=== PATIENT | male | born 1940 | race Caucasian/White ===

== ENCOUNTER 2019-03-15 09:53 | Day surgery (SDC) | payer OTHER, BC ==
[2019-03-11 13:42] VITALS: BMI 30.7
[2019-03-15 11:59] VITALS: TEMP 97.9
[2019-03-15 12:20] VITALS: BP 121/81; PULSE 76
--- NOTE | 2019-03-18 12:13 | PATH ---
Surgical Pathology Report Patient Name: GAMA MCKENNA [facility]. Rec. #: [id number] /Age/Gender: 1940 (Age: 78) / M Account: [id number] Location: [facility] Taken: 03/15/2019 Received: 03/15/2019 Reported: 03/18/2019 Physicians: Fer Pop M.D. Specimen(s) Received A: SECOND PORTION OF DUODENUM B: GASTRIC ANTRUM C: DISTAL ESOPHAGUS Clinical History Anemia (iron deficient) Postoperative diagnosis: Duodenitis, distal esophagitis, diverticulosis, poor prep Final Diagnosis A. SECOND PORTION OF DUODENUM, BIOPSY: DUODENAL MUCOSA WITH NO PATHOLOGIC FINDINGS. B. GASTRIC ANTRUM, BIOPSY: SEVERE CHRONIC ACTIVE GASTRITIS. IMMUNOSTAIN SHOWS NUMEROUS H. PYLORI ORGANISMS. C. DISTAL ESOPHAGUS, BIOPSY: ESOPHAGEAL (SQUAMOUS) MUCOSA WITH A DETACHED FRAGMENT SHOWING MARKED ACUTE ESOPHAGITIS. NO COLUMNAR EPITHELIUM/INTESTINAL METAPLASIA IS IDENTIFIED. PAS STAIN IS NEGATIVE FOR FUNGAL ORGANISMS. Electronically Signed Renetta Monique M.D. Gross Description A. Received in formalin, labeled "biopsy second portion of duodenum" are 2 marshall, irregular portions of soft tissue measuring 0.2 and 0.3 cm. in greatest dimension. The specimens are submitted in toto in one cassette. B. Received in formalin, labeled "biopsy gastric antrum" are 2 marshall, irregular portions of soft tissue measuring 0.4 and 0.6 cm. in greatest dimension. The specimens are submitted in toto in one cassette. C. Received in formalin, labeled "biopsy distal esophagus" is a marshall, irregular portion of soft tissue measuring 0.4 cm. in greatest dimension. The specimen is submitted in toto in one cassette. 03/16/2019 [facility]03/16/2019
== END 2019-03-15 12:25 | disposition home or self-care (01) ==
LOC: FASU-ENDO 09:53
PROVIDERS: ATTEND Internal Medicine Gastroenterology
PROC: 0DB68ZX Excision of Stomach, Via Natural or Artificial Opening Endoscopic, Diagnostic (ICD-10-PCS; 2019-03-15)
PROC: 0DB48ZX Excision of Esophagogastric Junction, Via Natural or Artificial Opening Endoscopic, Diagnostic (ICD-10-PCS; 2019-03-15)
PROC: 0DJD8ZZ Inspection of Lower Intestinal Tract, Via Natural or Artificial Opening Endoscopic (ICD-10-PCS; 2019-03-15)
PROC: 0DB98ZX Excision of Duodenum, Via Natural or Artificial Opening Endoscopic, Diagnostic (ICD-10-PCS; principal; 2019-03-15 11:26)
DX: D50.9 Iron deficiency anemia, unspecified (principal); K29.50 Unspecified chronic gastritis without bleeding; B96.81 Helicobacter pylori [H. pylori] as the cause of diseases classified elsewhere; K20.8 Other esophagitis
CPT/HCPCS: 82962

== ENCOUNTER 2019-03-29 09:49 | Day surgery (SDC) | payer OTHER, BC ==
[2019-03-24 13:59] VITALS: BMI 30.7
[2019-03-29 10:29] VITALS: TEMP 98.2
[2019-03-29] MEDS ORDERED: PROPOFOL 20 ML ONE ×3 (11:26)
[2019-03-29 12:26] VITALS: BP 115/75; PULSE 65
== END 2019-03-29 12:30 | disposition home or self-care (01) ==
LOC: FASU-ENDO 09:49
PROVIDERS: ATTEND Internal Medicine Gastroenterology
PROC: 0D5H8ZZ Destruction of Cecum, Via Natural or Artificial Opening Endoscopic (ICD-10-PCS; 2019-03-29)
PROC: 0D5K8ZZ Destruction of Ascending Colon, Via Natural or Artificial Opening Endoscopic (ICD-10-PCS; principal; 2019-03-29 11:26)
DX: K57.30 Diverticulosis of large intestine without perforation or abscess without bleeding (principal); K55.20 Angiodysplasia of colon without hemorrhage; Z12.11 Encounter for screening for malignant neoplasm of colon
CPT/HCPCS: 82962

== ENCOUNTER 2022-03-25 08:58 | Day surgery (SDC) | payer OTHER, BC ==
[2022-03-20 13:03] VITALS: BMI 29.0
[2022-03-25 13:07] VITALS: RESP 17; TEMP 98
[2022-03-25 13:09] VITALS: PULSE 55
[2022-03-25 13:11] VITALS: BP 132/61
== END 2022-03-25 11:36 | disposition home or self-care (01) ==
LOC: FASU-ENDO 08:58
PROVIDERS: ATTEND Internal Medicine Gastroenterology
PROC: 0D578ZZ Destruction of Stomach, Pylorus, Via Natural or Artificial Opening Endoscopic (ICD-10-PCS; 2022-03-25)
PROC: 0DJD8ZZ Inspection of Lower Intestinal Tract, Via Natural or Artificial Opening Endoscopic (ICD-10-PCS; 2022-03-25)
PROC: 0DB78ZX Excision of Stomach, Pylorus, Via Natural or Artificial Opening Endoscopic, Diagnostic (ICD-10-PCS; principal; 2022-03-25 09:58)
DX: K29.50 Unspecified chronic gastritis without bleeding (principal); B96.81 Helicobacter pylori [H. pylori] as the cause of diseases classified elsewhere; K29.80 Duodenitis without bleeding; K55.20 Angiodysplasia of colon without hemorrhage; D50.9 Iron deficiency anemia, unspecified
CPT/HCPCS: 82962; 88305-TC; 88342-TC

== ENCOUNTER 2022-05-30 08:09 | Day surgery (SDC) | payer OTHER, BC ==
[2022-05-28 13:22] VITALS: BMI 28.8
[2022-05-30] MEDS ORDERED: PROPOFOL 20 ML ONE (09:40)
[2022-05-30 11:17] VITALS: TEMP 98
[2022-05-30 11:19] VITALS: RESP 18
[2022-05-30 11:20] VITALS: BP 148/68; PULSE 67
== END 2022-05-30 11:20 | disposition home or self-care (01) ==
LOC: FASU-ENDO 08:09
PROVIDERS: ATTEND Internal Medicine Gastroenterology
PROC: 0D5H8ZZ Destruction of Cecum, Via Natural or Artificial Opening Endoscopic (ICD-10-PCS; 2022-05-30)
PROC: 0DBM8ZX Excision of Descending Colon, Via Natural or Artificial Opening Endoscopic, Diagnostic (ICD-10-PCS; principal; 2022-05-30 09:57)
DX: K55.20 Angiodysplasia of colon without hemorrhage (principal); D12.4 Benign neoplasm of descending colon; K57.30 Diverticulosis of large intestine without perforation or abscess without bleeding
CPT/HCPCS: 82962; 88305-TC